=== PATIENT | female | born 1970 | race Caucasian/White ===

== ENCOUNTER 2016-08-01 17:07 | Emergency (ER) | payer OTHER ==
[2016-08-01 17:14] VITALS: BP 125/85; PULSE 68; RESP 16; TEMP 98.2; O2SAT 100
--- NOTE | 2016-08-01 17:28 | ED PDOC ---
HPI: Dental Pain/Injury Time Seen by Provider: 08/01/16 17:17 Chief Complaint (Nursing): Dental Pain Chief Complaint (Provider): Left-Sided Dental Pain History Per: Patient History/Exam Limitations: no limitations Onset/Duration Of Symptoms: Days (x3) Current Symptoms Are (Timing): Still Present Severity: Moderate Additional Complaint(s): Tori Samuel is a 46 year old female, with no pertinent past medical history , who presents to the ED on 08/01/16 for the evaluation of a moderate amount of left-sided dental pain that she has experienced x3 days. Pain is localized to both the upper and lower molars where patient reports having "two bad teeth", with radiation up towards her left ear. Patient also reports having experienced a subjective fever last night as well as a mildly sore throat, though she denies having noted any gingival swelling or discharge coming from the affected teeth. Has medicated with Tylenol without relief. Of note, patient did attempt to make an appointment with her dentist, but none were available until next week. PMD: none Past Medical History Reviewed: Historical Data, Nursing Documentation, Vital Signs Vital Signs: Last Vital Signs Temp 98.2 F 08/01/16 17:11 Pulse 68 08/01/16 17:11 Resp 16 08/01/16 17:11 BP 125/85 08/01/16 17:11 Pulse Ox 100 08/01/16 17:11 - Medical History PMH: No Chronic Diseases, GERD - Surgical History Surgical History: Appendectomy - Family History Family History: States: Unknown Family Hx - Social History Current smoker - smoking cessation education provided: Yes - Immunization History Hx Tetanus Toxoid Vaccination: No Hx Influenza Vaccination: No Hx Pneumococcal Vaccination: No - Home Medications Home Medications: Ambulatory Orders Medication Instructions Recorded Cyclobenzaprine HCl [Flexeril] 10 mg PO HS #7 tab 05/15/15 Ibuprofen 600 mg PO Q6H PRN #15 tab 05/15/15 Oxycodone HCl/Acetaminophen 1 tab PO Q6 PRN #10 tab 05/15/15 [Percocet 325 mg-5 mg] Dicyclomine [Bentyl] 20 mg PO Q12 PRN #20 tab 03/16/16 Ondansetron ODT [Zofran ODT] 4 mg PO Q6 PRN #16 odt 03/16/16 Acetaminophen with Codeine 1 each PO TID #6 tablet 08/01/16 [Tylenol with Codeine #3 Tablet] - Allergies Allergies/Adverse Reactions: Allergies Allergy/AdvReac Type Severity Reaction Status Date / Time No Known Allergies Allergy Verified 08/01/16 17:11 Review of Systems Constitutional: Positive for: Fever (subjective, last night) ENT: Positive for: Mouth Pain (left-sided upper and lower molar; no discharge/ gum swelling), Throat Pain Physical Exam - Reviewed Nursing Documentation Reviewed: Yes Vital Signs Reviewed: Yes - Physical Exam Appears: Positive for: Non-toxic, No Acute Distress ENT: Positive for: TM Is/Are (normal b/l), Other (two intact metal fillings noted to left upper and lower molars respectively where patient has localized pain; no gingival swelling/bleeding, erythema/purulent discharge or additional signs of abscess/infection noted). Negative for: Pharyngeal Erythema, Tonsillar Exudate, Tonsillar Swelling Neurologic/Psych: Positive for: Alert, Oriented - ECG O2 Sat by Pulse Oximetry: 100 (RA) Pulse Ox Interpretation: Normal Medical Decision Making Medical Decision Makin:17 Initial Impression: dental caries, vital signs stable. 17:27 Patient is medically stable and requires no emergent treatment in the ED at this time, will discharge home. Rx for Tylenol #3 given as opposed to medications within the ED as patient is planning to walk home. Patient advised that it is possible she may be developing dental caries underneath her previously placed fillings. Instructed to followup with a dentist as soon as possible for further evaluation/treatment, with a list of additional dental clinics given prior to her leaving the ED. Patient has expressed understanding of these instructions and is in agreement with discharge plan, return for acute worsening of symptoms or if develop fever/chills/purulent drainage from affected teeth prior to followup appointment. Clinical Impression: dental caries PT given T#3 for pain 6tabs .pt tooth decay not eased with OTC medication pt in 02/22 pain. Pt will see dentist tuesday. pt educated on the risks of narcotic dependency. Scribe Attestation: Documented by Mee Park, acting as a scribe for Shirin Singh PA-C. Provider Scribe Attestation: All medical record entries made by the Scribe were at my direction and personally dictated by me. I have reviewed the chart and agree that the record accurately reflects my personal performance of the history, physical exam, medical decision making, and the department course for this patient. I have also personally directed, reviewed, and agree with the discharge instructions and disposition. Disposition - Clinical Impression Clinical Impression: Dental caries - Patient ED Disposition Is Patient to be Admitted: No Counseled Patient/Family Regarding: Diagnosis, Need For Followup, Rx Given - Disposition Disposition: Routine/Home Disposition Time: 17:27 Condition: STABLE Prescriptions: Acetaminophen with Codeine [Tylenol with Codeine #3 Tablet] 1 each PO TID #6 tablet Instructions: Dental Caries (ED)
== END 2016-08-01 17:27 | disposition home or self-care (01) ==
LOC: H.ER 17:07
DX: K02.9 Dental caries, unspecified (principal); H92.02 Otalgia, left ear; J02.9 Acute pharyngitis, unspecified; R68.83 Chills (without fever)

== ENCOUNTER 2016-12-21 16:32 | Emergency (ER) | payer OTHER ==
[2016-12-21 17:05] VITALS: BP 110/76; PULSE 80; RESP 16; TEMP 98; O2SAT 100
--- NOTE | 2016-12-21 18:14 | ED PDOC ---
HPI: CCC, URI, Sore Throat Time Seen by Provider: 12/21/16 17:15 Chief Complaint (Nursing): ENT Problem Chief Complaint (Provider): Right ear pain History Per: Patient History/Exam Limitations: no limitations Onset/Duration Of Symptoms: Days (x2 days) Location Of Pain: Other (right lower jaw radiating to ear) Associated Symptoms: Fever. denies: Sore Throat Additional Complaint(s): Tori Samuel is a 46 year old female, with no past medical history, who presents to the emergency department complaining of right lower jaw pain radiating to right ear associated with fever. Patient reports pain hasn't decreased since arrival to the ED. She denies any drainage from ear, sore throat , and gum bleeding. PMD: None provided Past Medical History Reviewed: Historical Data, Nursing Documentation, Vital Signs Vital Signs: Last Vital Signs Temp 98 F 12/21/16 17:02 Pulse 80 12/21/16 17:02 Resp 16 12/21/16 17:02 BP 110/76 12/21/16 17:02 Pulse Ox 100 12/21/16 18:35 - Medical History PMH: No Chronic Diseases, GERD - Surgical History Surgical History: Appendectomy - Family History Family History: States: Unknown Family Hx - Immunization History Hx Tetanus Toxoid Vaccination: No Hx Influenza Vaccination: No Hx Pneumococcal Vaccination: No - Home Medications Home Medications: Ambulatory Orders Medication Instructions Recorded Cyclobenzaprine HCl [Flexeril] 10 mg PO HS #7 tab 05/15/15 Ibuprofen 600 mg PO Q6H PRN #15 tab 05/15/15 Oxycodone HCl/Acetaminophen 1 tab PO Q6 PRN #10 tab 05/15/15 [Percocet 325 mg-5 mg] Dicyclomine [Bentyl] 20 mg PO Q12 PRN #20 tab 03/16/16 Ondansetron ODT [Zofran ODT] 4 mg PO Q6 PRN #16 odt 03/16/16 Acetaminophen with Codeine 1 each PO TID #6 tablet 08/01/16 [Tylenol with Codeine #3 Tablet] Amoxicillin [Amoxil 500 mg Cap] 500 mg PO DAILY #7 cap 12/21/16 Ketorolac Tromethamine [Toradol] 10 mg PO TID #20 cap 12/21/16 - Allergies Allergies/Adverse Reactions: Allergies Allergy/AdvReac Type Severity Reaction Status Date / Time No Known Allergies Allergy Verified 08/01/16 17:11 Review of Systems ROS Statement: Except As Marked, All Systems Reviewed And Found Negative Constitutional: Positive for: Fever ENT: Negative for: Ear Discharge, Throat Pain, Other (gum bleeding ) Physical Exam - Reviewed Nursing Documentation Reviewed: Yes Vital Signs Reviewed: Yes - Physical Exam Appears: Positive for: Well, Non-toxic, No Acute Distress Head Exam: Positive for: ATRAUMATIC, NORMAL INSPECTION, NORMOCEPHALIC Skin: Positive for: Normal Color, Warm, Dry Eye Exam: Positive for: EOMI, Normal appearance, PERRL ENT: Positive for: Other (mild tenderness in right lower jaw radiating to the backmolar. Backmolar with filling in place but tender on touch) Cardiovascular/Chest: Positive for: Regular Rate, Rhythm Respiratory: Positive for: CNT, Normal Breath Sounds Extremity: Positive for: Normal ROM Neurologic/Psych: Positive for: Alert, Oriented - ECG O2 Sat by Pulse Oximetry: 100 (RA) Pulse Ox Interpretation: Normal Medical Decision Making Medical Decision Making: Initial Impression: Dental cavities Initial Plan: Scribe Attestation: Documented by Esteban Bolden, acting as a scribe for Shirin SILVA. Provider Scribe Attestation: All medical record entries made by the Scribe were at my direction and personally dictated by me. I have reviewed the chart and agree that the record accurately reflects my personal performance of the history, physical exam, medical decision making, and the department course for this patient. I have also personally directed, reviewed, and agree with the discharge instructions and disposition. Disposition - Clinical Impression Clinical Impression: Dental caries - Patient ED Disposition Is Patient to be Admitted: No Counseled Patient/Family Regarding: Studies Performed, Diagnosis, Need For Followup, Rx Given - Disposition Disposition: Routine/Home Disposition Time: 19:48 Condition: STABLE Prescriptions: Amoxicillin [Amoxil 500 mg Cap] 500 mg PO DAILY #7 cap Ketorolac Tromethamine [Toradol] 10 mg PO TID #20 cap Instructions: Dental Caries (ED) Forms: [employer] ([place])
== END 2016-12-21 17:46 | disposition home or self-care (01) ==
LOC: H.ER 16:32
DX: K02.9 Dental caries, unspecified (principal)

== ENCOUNTER 2017-05-19 12:37 | Inpatient (IN) | payer MEDICAID, OTHER ==
[2017-05-19] MEDS ORDERED: Alum-Mag Hydrox-Simethicone Susp (30 mL) PO ONE (13:23)
--- NOTE | 2017-05-19 14:11 | ED PDOC ---
HPI: General Adult Time Seen by Provider: 05/19/17 13:06 Chief Complaint (Nursing): Anxiety Chief Complaint (Provider): anxiety, abd pain History Per: Patient History/Exam Limitations: no limitations Onset/Duration Of Symptoms: Days (2), Gradual Current Symptoms Are (Timing): Still Present Severity: Moderate Location Of Discomfort (Image): 1 - burning Additional Complaint(s): 46yo female c/o anxiety and epigastric burning/discomfort x2 days. She states her sister is missing and that is causing her much stress, anxiety and feelings of helplessness. She believes this triggered her gastritits for which she's lost her appetite and had burning in her stomach associated with nausea but no vomiting. She denies suicidal ideation, drug or alcohol use, fever, cough, melena, diarrhea or blood in stool. Past Medical History Reviewed: Historical Data, Nursing Documentation, Vital Signs Vital Signs: Last Vital Signs Temp 98.5 F 05/19/17 13:09 Pulse 110 H 05/19/17 13:09 Resp 21 05/19/17 13:09 BP 138/91 H 05/19/17 13:09 Pulse Ox 100 05/19/17 14:13 - Medical History PMH: Anxiety, GERD - Surgical History Surgical History: Appendectomy - Family History Family History: States: Unknown Family Hx - Living Arrangements Living Arrangements: With Family - Social History Alcohol: None Drugs: Denies - Immunization History Hx Tetanus Toxoid Vaccination: No Hx Influenza Vaccination: No Hx Pneumococcal Vaccination: No - Home Medications Home Medications: Ambulatory Orders Medication Instructions Recorded Cyclobenzaprine HCl [Flexeril] 10 mg PO HS #7 tab 05/15/15 Ibuprofen 600 mg PO Q6H PRN #15 tab 05/15/15 Oxycodone HCl/Acetaminophen 1 tab PO Q6 PRN #10 tab 05/15/15 [Percocet 325 mg-5 mg] Dicyclomine [Bentyl] 20 mg PO Q12 PRN #20 tab 03/16/16 Ondansetron ODT [Zofran ODT] 4 mg PO Q6 PRN #16 odt 03/16/16 Acetaminophen with Codeine 1 each PO TID #6 tablet 08/01/16 [Tylenol with Codeine #3 Tablet] Amoxicillin [Amoxil 500 mg Cap] 500 mg PO DAILY #7 cap 12/21/16 Ketorolac Tromethamine [Toradol] 10 mg PO TID #20 cap 12/21/16 - Allergies Allergies/Adverse Reactions: Allergies Allergy/AdvReac Type Severity Reaction Status Date / Time No Known Allergies Allergy Verified 08/01/16 17:11 Review of Systems ROS Statement: Except As Marked, All Systems Reviewed And Found Negative Constitutional: Negative for: Fever, Chills Cardiovascular: Negative for: Chest Pain, Palpitations Respiratory: Negative for: Cough, Shortness of Breath Gastrointestinal: Positive for: Nausea, Abdominal Pain. Negative for: Vomiting , Diarrhea, Melena, Hematochezia Genitourinary Female: Negative for: Dysuria, Frequency Musculoskeletal: Negative for: Neck Pain, Shoulder Pain Skin: Negative for: Rash, Lesions Neurological: Negative for: Weakness, Numbness, Change in Speech, Headache Psych: Positive for: Anxiety, Depression. Negative for: Psychosis, Suicidal ideation Physical Exam - Reviewed Nursing Documentation Reviewed: Yes Vital Signs Reviewed: Yes - Physical Exam Appears: Positive for: Non-toxic (anxious), No Acute Distress Head Exam: Positive for: ATRAUMATIC, NORMAL INSPECTION, NORMOCEPHALIC Skin: Positive for: Normal Color, Warm, DRY Eye Exam: Positive for: EOMI, Normal appearance, PERRL ENT: Positive for: Normal ENT Inspection Neck: Positive for: Normal, Painless ROM Cardiovascular/Chest: Positive for: Regular Rate, Rhythm Respiratory: Positive for: CNT, Normal Breath Sounds Gastrointestinal/Abdominal: Positive for: Soft, Tenderness (epigastric). Negative for: Guarding, Rebound Back: Positive for: Normal Inspection Extremity: Positive for: Normal ROM Neurologic/Psych: Positive for: Alert, Oriented. Negative for: Motor/Sensory Deficits - ECG O2 Sat by Pulse Oximetry: 100 Medical Decision Making Medical Decision Making: workup initiated for gastritis with anxiety triggered by family stressors and sister's unknown whereabouts crisis eval ordered, xanax 1mg PO, pepcid/ maalox ordered per crisis admit to [facility] med clearance labs/EKG/CXR ordered endorse Dr Delcid pending med clr Disposition - Clinical Impression Clinical Impression: Anxiety, Epigastric pain, Depression - Patient ED Disposition Is Patient to be Admitted: Transfer of Care Counseled Patient/Family Regarding: Studies Performed, Diagnosis - Disposition Disposition: Transfer of Care Disposition Time: 15:03 Condition: FAIR Forms: [facility] ([place]) Patient Signed Over To: Malena Delcid Handoff Comments: labs/ekg/cxr for psychiatric admission
--- NOTE | 2017-05-19 15:02 | RAD ---
HISTORY: ro infiltrate COMPARISON: No prior. FINDINGS: LUNGS: The lungs are well inflated and clear. PLEURA: No significant pleural effusion identified, no pneumothorax apparent. CARDIOVASCULAR: Normal. OSSEOUS STRUCTURES: There are old fracture deformities in the right posterior 7th and 8th ribs. VISUALIZED UPPER ABDOMEN: Normal. OTHER FINDINGS: None. IMPRESSION: No active pulmonary disease.
--- NOTE | 2017-05-19 15:09 | ED PDOC ---
- Laboratory Results Result Diagrams: 05/19/17 15:50 05/19/17 15:50 - ECG O2 Sat by Pulse Oximetry: 100 Medical Decision Making Medical Decision Making: Time: 1500 --Patient endorsed from Dr. Robles to me. --Pending blood, chest, and EKG work up for medical clearance and for admission to psychiatric unit. 17:09 Patient will be admitted to psychiatry for depression and anxiety. Scribe~Attestation: Documented by Esperanza Valles and Flor Montez, acting as scribes for Malena Delcid MD. Provider Scribe~Attestation: All medical record entries made by the Scribe were at my direction and personally dictated by me. I have reviewed the chart and agree that the record accurately reflects my personal performance of the history, physical exam, medical decision making, and the department course for this patient. I have also personally directed, reviewed, and agree with the discharge instructions and disposition. Disposition Doctor Will See Patient In The: Hospital Counseled Patient/Family Regarding: Diagnosis - Clinical Impression Clinical Impression: Anxiety, Epigastric pain, Depression - POA Present On Arrival: None - Disposition Disposition: Admitted as In-Patient Disposition Time: 16:50 Condition: FAIR
[2017-05-19 15:55] LABS: BASO % 0.3 % (0.0-2.0); EOS % 0.1 % (0.0-4.0); HEMOGLOBIN 11.7 g/dL (12.0-16.0); LYMPH % 28.1 % (20.0-40.0); MEAN CELL VOLUME 93.9 fl (81.0-99.0); MEAN PLATELET VOLUME 7.8 fl (7.2-11.7); MONO # 0.3 K/uL (0.0-0.8); MONO % 3.9 % (0.0-10.0); NEUT # 4.9 K/uL (1.8-7.0); NEUT % 67.6 % (50.0-75.0); RBC 3.76 Mil/uL (3.80-5.20); RED CELL DISTRIBUTION WIDTH 13.1 % (11.5-14.5); WHITE BLOOD COUNT 7.3 K/uL (4.8-10.8)
[2017-05-19 16:13] LABS: BARBITURATES, UR NEGATIVE (NEGATIVE); BENZODIAZEPINES, UR NEGATIVE (NEGATIVE); OPIATES, UR NEGATIVE (NEGATIVE); PHENCYCLIDINE, UR NEGATIVE (NEGATIVE)
[2017-05-19 16:17] LABS: ACETAMINOPHEN < 10.0 ug/ml (10.0-30.0); SALICYLATE < 1.0 mg/dl
[2017-05-19 16:18] LABS: ALB/GLOB RATIO 1.4 (1.0-2.1); ALBUMIN 4.6 g/dL (3.5-5.0); ALT/SGPT 45 U/L (9-52); AST/SGOT 26 U/L (14-36); BLOOD UREA NITROGEN 14 mg/dl (7-17); CALCIUM 9.3 mg/dL (8.4-10.2); GFR AFRICAN-AMERICAN > 60; GFR NON-AFRICAN AMERICAN > 60
[2017-05-19] MEDS ORDERED: DiphenhydrAMINE 50 mg/ml Inj IM PRN (19:56)
[2017-05-19] MEDS ORDERED: Magnesium Hydroxide Susp 30 ml UD PO PRN (19:56)
--- NOTE | 2017-05-19 20:04 | PCM.BM ---
<SushilJuana Lorenzo - Last Filed: 05/19/17 20:02> Treatment Plan Problems - Problems identified on initial assessmt Anxiety Date Initiated: 05/19/17 Time Initiated: 20:02 Assessment reference: NA Status: Active Hopelessness/Helplessness Date Initiated: 05/19/17 Time Initiated: 20:03 Assessment reference: NA Status: Active Treatment assets and liabiliti Patient Assests: cooperative, ADL independent, negotiates basic needs Patient Liabilities: substance abuse - Milieu Protocol Maintain good personal hygiene: daily Encourage regular showers Conduct patient checks and document Observation sheet: Q15 minutes Maintain personal safety: every shift Educate patient to report safety concerns to staff, every shift Monitor environment for contraband/sharps Medication safety: Monitor for expected outcome, potential side effects: every shift, Assess barriers to learning: every shift, Assess readiness for medication education: every shift <Carlo Gaona - Last Filed: 05/22/17 16:41> Family Contact Family involvement: Family/SO is involved Family contact: Patient declines to allow family contact at present Family contact name: Pt denied. - Goals for Treatment Patient goals for treatment: Pt would like to get connected to outpatient services so she can begin therapy to begin to work on her anxiety and how her thoughts and behavior effect her. Discharge/Continuing Care - Education Needs Education Needs: Patient Medication, Patient Diagnosis/Disease Process, Patient Coping Skills, Patient Community resources, Patient Health Practices/Safety - Discharge Discharge Criteria: Tolerates medication w/o severe side effects, Free of agitation, Normal sleep pattern Discharge to:: Home, With Family - Treatment Team Participation Discussed with Family/SO: No <Teresa Echeverria - Last Filed: 05/23/17 12:07> Discharge/Continuing Care - Treatment Team Participation Patient/Family/SO Statement: 05/23/17 12:07 Patient reports significant improvement in symptoms of depression and anxiety since admission. Patient brighter than upon admission. Patient visible on 3NP and observed socializing appropriately with peers. Patient is discharged focused and expressed motivation for tx. Patient agreeable to outpatient mental health services with [facility]. Patient anticipated discharge on 05/24. Patient denies any concerns. Was Patient/Family/SO present at Treatment Team Meeting: Yes <Art Martin - Last Filed: 05/24/17 09:34> - Diagnosis (1) Anxiety Status: Acute Interventions: 05/24/17 09:01 psychotherapy pharmacotherapy
[2017-05-19] MEDS: Alum-Mag Hydrox-Simethicone Susp (30 mL) PO PRN (21:23)
[2017-05-20 08:41] LABS: T4 10.7 ug/dl (5.5-11.0)
[2017-05-20] MEDS ORDERED: Influenza Vaccine 18yr & older 0.5 ML/45 MCG SYR IM ONE (09:00)
[2017-05-20] MEDS ORDERED: Pneumococcal 23-Valent Vaccine IM ONE (09:30)
--- NOTE | 2017-05-20 10:50 | CARD ---
APPROVED REPORT EKG Measurement Heart [id number] <Conclusion> Normal sinus rhythm Normal ECG
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
--- NOTE | 2017-05-20 16:30 | PCM.PSYCH ---
Initial Psychiatric Evaluation - Initial Psychiatric Evaluation Legal Status: Capacity Chief Complaint (in patient's own words): I am anxious and very depressed Patient's Reaction to Hospitalization: pt requested help History of Present Illness and Precipitating Events: pt with previous psychiatric diagnosis of opiate dependence in full remission, depression and anxiety, recently lost her father for pancreatic cancer, has been since thaen increasingly depressed, anxious edgy keyed up poor, sleep , poor appetite with excessive weight loss pt last week was unable to get in touch with her sister became more worried, started experiencing suicidal ideations without a plan, came to er seeking help denied manic or psychotic symptoms, reported daily use of cannabis, denied homicidal ideations Current Medications: Active Medications Generic Name Dose Route Start Last Admin Trade Name Freq PRN Reason Stop Dose Admin Acetaminophen 650 mg 05/19/17 19:56 Tylenol 325mg Tab PO Q4 PRN pain level 4-7 Al Hydrox/Mg Hydrox/Simethicone 30 ml 05/19/17 19:56 05/19/17 21:23 Maalox Plus 30 Ml PO 30 ml Q4 PRN Administration Dyspepsia Buspirone HCl 5 mg 05/20/17 11:30 05/20/17 13:12 Buspar PO 5 mg BID TSERING Administration Diphenhydramine HCl 50 mg 05/19/17 19:56 Benadryl IM Q6 PRN Extrapyramidal S/S Unable PO Diphenhydramine HCl 50 mg 05/19/17 19:56 Benadryl PO Q6 PRN Extrapyramidal Symptoms Haloperidol 5 mg 05/19/17 19:56 Haldol PO Q4 PRN Agitation Haloperidol Lactate 5 mg 05/19/17 19:56 Haldol IM Q4 PRN Agitation, Unable to Take PO Lorazepam 1 mg 05/19/17 19:56 Ativan IM Q6 PRN Anxiety/Agitation,Unable PO Lorazepam 1 mg 05/19/17 19:56 Ativan PO Q6 PRN Anxiety/Agitation Magnesium Hydroxide 30 ml 05/19/17 19:56 Milk Of Magnesia PO HS PRN Constipation Mirtazapine 7.5 mg 05/20/17 22:00 Remeron PO HS [facility] Pantoprazole Sodium 40 mg 05/20/17 11:45 Protonix Ec Tab PO DAILY [facility] Past Psychiatric History - Past Psychiatric History Explanation of prior treatment: history of opiate dependence. in full remission for seven yearsno hx of previous hospitalizations, hx of rehab for opiate dependence, court mandated History of Abuse: denied History of ETOH/Drug Use: cannabis use daily History of Family Illness: older sister/ depression Pertinent Medical Hx (Current Medical&Sleep Prob, Allergies): Allergies Allergy/AdvReac Type Severity Reaction Status Date / Time No Known Allergies Allergy Verified 08/01/16 17:11 Acetaminophen/Diphenhydramine [Tylenol Pm Ex-Strength Caplet] 1 each PO HS 05/19 Mental Status Examination - Personal Presentation Personal Presentation: Looks stated age - Affect Affect: Constricted, Depressed - Motor Activity Motor Activity: Psychomotor Retardation - Reliability in Providing Information Reliability in Providing Information: Fair - Speech Speech: Relevant - Mood Mood: Depressed, Anxious - Formal Thought Process Formal Thought Process: Circumstantial - Hallucinations/Delusions Additional comments: pt denied perceptual disturbances , non elicited - Obsessions/Compulsions Obsessions: No Compulsions: No - Cognitive Functions Orientation: Person, Place Sensorium: Alert Attention/Concentration: Attentive Abstract Thinking: [place] Judgement: Imparied, as evidence by: Poor judgement - Risk Risk: Diminished functioning - Strength & Assets Inventory Strength & Assets Inventory: Employment history - Limitations Additional comments: limited insight DSM 5 DX - DSM 5 DSM 5 Diagnosis: major depression generalized anxiety disorder cannabis induced anxiety disorder - Recommended/Plan of Treatment Treatment Recommendations and Plan of Treatment: start remeron 7.5mg qhs start buspar 5mg bid CBT, Motivational and group therapy Projected ELOS: 7 days Discharge Plan and Discharge Criteria: pt no longer depressed
[2017-05-20] MEDS: Pantoprazole 40 mg EC Tab PO SCH (17:31)
[2017-05-21] MEDS: Pantoprazole 40 mg EC Tab PO SCH (08:56)
[2017-05-21] MEDS: Alum-Mag Hydrox-Simethicone Susp (30 mL) PO PRN (17:53)
--- NOTE | 2017-05-21 18:33 | PCM.PYCHPN ---
Psychiatric Progress Note - Psychiatric Progress Note Patient seen today, length of contact: chart reviewed case discussed with team Patient Chief Complaint: was feeling depressed somewhat improving Problems Identified/Issues Discussed: alteration in coping alteration in mood Medical Problems: per chart Diagnostic Results: per psychiatry per medicine per nursing per social work DSM 5 Symptoms Update: mood symptoms somewhat improving Medication Change: No Medical Record Reviewed: Yes Consults ordered or reviewed: pt being followed by hospitalist Mental Status Examination - Cognitive Function Orientation: Person, Place, Situation, Time Attention: WNL Concentration: WNL Association: WNL Fund of Knowledge: WN Decription of patient's judgement and insights: impaired - Mood Mood: Depressed, Anxious - Affect Affect: Constricted, Depressed - Formal Thought Process Formal Thought Process: Circumstantial - Homicidal Ideation Homicidal Ideation: No Goal/Treatment Plan - Goal/Treatment Plan Progress Toward Problem(s) and Goals/Treatment Plan: inpt milieu adjust rx per status discharge planning in progress Estimated Date of D/C: 05/24/17 - Smoking Cessation Smoking Cessation Initiated: No Reason for not providing: pt defers
[2017-05-22] MEDS: Pantoprazole 40 mg EC Tab PO SCH (08:56)
--- NOTE | 2017-05-22 20:38 | PCM.PYCHPN ---
Psychiatric Progress Note - Psychiatric Progress Note Patient seen today, length of contact: chart reviewed case discussed with team Patient Chief Complaint: was feeling depressed improving, reports last night felt as though legs were shaking asks if any new rx was given chart was reviewed and no meds were changed received mirtazepine 7.5mg po hs (had been receiving). was seen about unit interacting with peers laughing at times. chart reveals that pt received prn benadryl which pt. reports that benadryl helped with the shaking of legs- questions may have been several cups of tea Problems Identified/Issues Discussed: alteration in coping alteration in mood Medical Problems: per chart Diagnostic Results: per psychiatry per medicine per nursing per social work DSM 5 Symptoms Update: alteration in mood and sleep-improving Medication Change: No Medical Record Reviewed: Yes Consults ordered or reviewed: pt being followed by hospitalist Mental Status Examination - Cognitive Function Orientation: Person, Place, Situation, Time Attention: WNL Concentration: WNL Association: WNL Fund of Knowledge: WNL Decription of patient's judgement and insights: impaired - Mood Mood: Depressed, Anxious - Affect Affect: Constricted, Depressed - Formal Thought Process Formal Thought Process: Circumstantial - Homicidal Ideation Homicidal Ideation: No Goal/Treatment Plan - Goal/Treatment Plan Progress Toward Problem(s) and Goals/Treatment Plan: inpt milieu vital signs and clinical observation per protocol and per status review with pt may notify staff if feels same can discuss with team in am adjust rx per status discharge planning in progress Estimated Date of D/C: 05/24/17 - Smoking Cessation Smoking Cessation Initiated: No Reason for not providing: defers
[2017-05-23 05:24] VITALS: O2SAT 100
[2017-05-23] MEDS: Pantoprazole 40 mg EC Tab PO SCH ×2 (08:58→09:43)
[2017-05-23] MEDS: Alum-Mag Hydrox-Simethicone Susp (30 mL) PO PRN (13:11)
--- NOTE | 2017-05-23 16:50 | PCM.PYCHPN ---
Psychiatric Progress Note - Psychiatric Progress Note Patient seen today, length of contact: chart reviewed case discussed with team Patient Chief Complaint: I am feeling better Problems Identified/Issues Discussed: pt reported better mood , less anxious, improvedsleep and appetite denied any current suicidal or homicidal ideations denied perceptual disturbances denied side effects of medications Medical Problems: history of opiate dependence. in full remission for seven yearsno hx of previous hospitalizations, hx of rehab for opiate dependence, court mandated DSM 5 Symptoms Update: generalized anxiety disorder cannabis use disrder Medication Change: Yes (increase buspar) Medical Record Reviewed: Yes Mental Status Examination - Cognitive Function Orientation: Person, Place, Situation, Time Attention: WNL Concentration: WNL Association: WNL Fund of Knowledge: WNL - Mood Mood: Neutral - Affect Affect: Constricted, Depressed - Speech Speech: Appropriate - Formal Thought Process Formal Thought Process: Circumstantial Psychotic Thoughts and Behaviors: pt denied psychotic symptoms, non elicited - Suicidal Ideation Suicidal Ideation: No - Homicidal Ideation Homicidal Ideation: No Goal/Treatment Plan - Goal/Treatment Plan Need for Continued Stay: Severe depression anxiety, Discharge may exacerbated symptoms Progress Toward Problem(s) and Goals/Treatment Plan: continue remeron 7.5mg qhs increase buspar 10mg bid CBT, Motivational and group therapy Estimated Date of D/C: 05/24/17
[2017-05-24] MEDS: Pantoprazole 40 mg EC Tab PO SCH (08:41)
[2017-05-24 08:50] VITALS: BP 124/72; PULSE 76; RESP 18; TEMP 97.9
--- NOTE | 2017-05-24 12:36 | PCM.PYCHDC ---
Mental Status Examination - Mental Status Examination Orientation: Person, Place, Situation Memory: Intact Mood: Neutral Affect: Broad Speech: Appropriate Attention: WNL Concentration: WNL Association: WNL Fund of Knowledge: WNL Formal Thought Process: No Impairment Description of patient's judgement and insight: fair insight and judgment Psychotic Thoughts and Behaviors: pt denied psychotic symptoms, non elicited Suicidal Ideation: No Current Homicidal Ideation?: No Discharge Summary - Discharge Note Reason for Hospitalization: pt with previous psychiatric diagnosis of opiate dependence in full remission, depression and anxiety, recently lost her father for pancreatic cancer, has been since thaen increasingly depressed, anxious edgy keyed up poor, sleep , poor appetite with excessive weight loss pt last week was unable to get in touch with her sister became more worried, started experiencing suicidal ideations without a plan, came to er seeking help denied manic or psychotic symptoms, reported daily use of cannabis, denied homicidal ideations Consultations:: List each consultation separately and include: 1. Reason for request. 2. Findings. 3. Follow-up Summary of Hospital Course include:: 1. Description of specific treatment plan utilized for patients during their course of treatmen. 2. Summarize the time- course for resolution of acute symptoms and/or regressed behaviors. 3. Describe issues identified and worked on during hospitalization. 4. Describe medication utilized. 5. Describe medical problems identified and treated. 6. Reassessment of suicide risk Summary of Hospital Course: pt on admission was started on remeron for depression and poor appetite also started on buspar for anxiety Motivational group and supportive therapy provided pt was compliant with treatment, no reported side effects of medications on discharge mental status was stable, pt denied any current suicidal ideations denied perceptual disturbances follow up arranged with outpatient clinic - Diagnosis (1) Anxiety Current Visit: Yes Status: Acute - Final Diagnosis (DSM 5) Condition upon Discharge: FAIR DSM 5: generalized anxiety disorder cannabis induced anxiety disorder cannabis use disorder Disposition: HOME/ ROUTINE Follow-up Treatment Plan: continue remeron 7.5mg qhs increase buspar 10mg bid CBT, Motivational and group therapy Prescriptions/Medication Reconciliation: busPIRone [Buspar] 10 mg PO BID 30 Days #60 tab Mirtazapine [Remeron] 7.5 mg PO HS 30 Days #30 tab Pantoprazole [Protonix EC Tab] 40 mg PO DAILY 15 Days #15 ect - Antipsychotic Medications Pt discharged on 2 or more routine antipsychotic medications: No
== END 2017-05-24 11:00 | disposition home or self-care (01) | DRG 425 ==
LOC: H.ER 12:37 → H.ERHOLD 17:07 → H.PSYCH 19:25
PROVIDERS: ADMIT Psychiatry & Neurology Psychiatry; ATTEND Psychiatry & Neurology Psychiatry
PROC: HZ52ZZZ Individual Psychotherapy for Substance Abuse Treatment, Cognitive-Behavioral (ICD-10-PCS; principal; 2017-05-19)
PROC: GZHZZZZ Group Psychotherapy (ICD-10-PCS; 2017-05-19)
PROC: HZ57ZZZ Individual Psychotherapy for Substance Abuse Treatment, Motivational Enhancement (ICD-10-PCS; 2017-05-19)
DX: F41.1 Generalized anxiety disorder (principal); F11.21 Opioid dependence, in remission; F12.90 Cannabis use, unspecified, uncomplicated; F12.980 Cannabis use, unspecified with anxiety disorder; F32.9 Major depressive disorder, single episode, unspecified; K21.9 Gastro-esophageal reflux disease without esophagitis; R10.13 Epigastric pain

== ENCOUNTER 2018-06-22 14:39 | Emergency (ER) | payer SELFPAY ==
[2018-06-22 15:18] VITALS: TEMP 98.2
--- NOTE | 2018-06-22 16:37 | ED PDOC ---
HPI: Influenza Time Seen by Provider: 06/22/18 15:26 Chief Complaint: ENT Problem Chief Complaint (Provider): Flu-like Symptoms History Per: Patient Exam Limitations: no limitations Onset/Duration Of Symptoms: Days (x1) Additional complaint(s):: 48 year old female with pmhx of kidney stones presents to the ED for evaluation of nasal congestion, watery d/c from left eye, cough productive of whitish- yellow sputum, mild sore throat with ability to tolerate fluids, body aches, and right flank pain associated with urinary frequency and dysuria for the past day. Patient also notes that she is menopausal and has hot flashes, so she is unsure if she is actually feverish. 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 Pt did not receive flu vaccinations this season PMD: none provided Past Medical History Reviewed: Historical Data, Nursing Documentation, Vital Signs Vital Signs: Last Vital Signs Temp 98.2 F 06/22/18 15:15 Pulse 82 06/22/18 15:15 Resp 18 06/22/18 15:15 BP 111/66 06/22/18 15:15 Pulse Ox 97 06/22/18 15:15 - Medical History PMH: Anxiety, Depression, GERD Denies: Diabetes, Hepatitis, HIV, HTN, Kidney Stones, Chronic Kidney Disease, Seizures, Sexually Transmitted Disease - Surgical History Surgical History: Appendectomy Other surgeries: kidney stones - Family History Family History: States: Unknown Family Hx - Social History Current smoker - smoking cessation education provided: Yes (7 cigs daily for past 3 years) Alcohol: None Drugs: Denies - Immunization History Hx Tetanus Toxoid Vaccination: No Hx Influenza Vaccination: No Hx Pneumococcal Vaccination: No - Home Medications Home Medications: Ambulatory Orders Medication Instructions Recorded Acetaminophen/Diphenhydramine 1 each PO HS 05/19/17 [Tylenol Pm Ex-Strength Caplet] Mirtazapine [Remeron] 7.5 mg PO HS 30 Days #30 tab 05/24/17 Pantoprazole [Protonix EC Tab] 40 mg PO DAILY 15 Days #15 ect 05/24/17 busPIRone [Buspar] 10 mg PO BID 30 Days #60 tab 05/24/17 Ibuprofen [Motrin Tab] 600 mg PO Q6 PRN 7 Days tab 06/22/18 Oseltamivir Phosphate [Tamiflu] 75 mg PO BID 5 Days capsule 06/22/18 - Allergies Allergies/Adverse Reactions: Allergies Allergy/AdvReac Type Severity Reaction Status Date / Time No Known Allergies Allergy Verified 08/01/16 17:11 Review of Systems ROS Statement: Except As Marked, All Systems Reviewed And Found Negative Constitutional: Positive for: Fever (possibly), Other (body aches) Eyes: Positive for: Other (watery discharge from left eye) ENT: Positive for: Nose Congestion, Throat Pain (mild). Negative for: Ear Pain Respiratory: Positive for: Cough, Sputum (whitish-yellow) Gastrointestinal: Negative for: Nausea, Vomiting, Diarrhea Genitourinary Female: Positive for: Dysuria, Frequency Musculoskeletal: Positive for: Other (right flank pain) Physical Exam - Reviewed Nursing Documentation Reviewed: Yes Vital Signs Reviewed: Yes - Physical Exam Appears: Positive for: Uncomfortable Head Exam: Positive for: ATRAUMATIC, NORMAL INSPECTION, NORMOCEPHALIC Eye Exam: Positive for: Normal appearance, EOMI, PERRL ENT: Positive for: Pharyngeal Erythema (mild). Negative for: Sinus Pain/Drainage (to palpation), Tonsillar Exudate, Tonsillar Swelling Cardiovascular/Chest: Positive for: Regular Rate, Rhythm Respiratory: Positive for: Normal Breath Sounds. Negative for: Rales, Rhonchi, Wheezing, Respiratory Distress Gastrointestinal/Abdominal: Positive for: Normal Exam, Soft. Negative for: Tenderness Back: Positive for: Normal Inspection. Negative for: L CVA Tenderness, R CVA Tenderness, Vertebral Tenderness Lymphatic: Positive for: Other (palpable lymph node on right neck) Neurologic/Psych: Positive for: Alert, Oriented (x3) Medical Decision Making Medical Decision Making: Time: 155 Initial Impression: flu-like symptoms Initial Plan: --BMP --U-preg --CBC with differential --Toradol 15mg IVP --Urine culture --Influenza A B swab --Rapid strep --Urinalysis --Reevaluation 1729 Upon reevaluation, pt notes her flank pain has improved. Rapid strep and flu results are negative, and labs only significant for slightly elevated BUN at 22. UA reviewed and within normal limits. All results discussed with patient and questions answered. Pt will be started on 500cc NS bolus and given first dose of Tamiflu 75mg PO here, which she will receive a script for upon d/c. 1844 Upon reevaluation, pt reports she is feeling better. Return parameters discussed and patient is stable for d/c home. Scribe Attestation: Documented by Pretty Paris, acting as a scribe for Alice Rodriguez PA-C. Provider Scribe Attestation: All medical record entries made by the Scribe were at my direction and personally dictated by me. I have reviewed the chart and agree that the record accurately reflects my personal performance of the history, physical exam, medical decision making, and the department course for this patient. I have also personally directed, reviewed, and agree with the discharge instructions and disposition. - Laboratory Results Result Diagrams: 06/22/18 16:03 06/22/18 16:03 - ECG O2 Sat by Pulse Oximetry: 97 (RA) Pulse Ox Interpretation: Normal Disposition - Clinical Impression Clinical Impression: Influenza - Patient ED Disposition Is Patient to be Admitted: No Counseled Patient/Family Regarding: Studies Performed, Diagnosis, Rx Given - Disposition Referrals: [facility] [Outside] Disposition Time: 18:53 Condition: STABLE Additional Instructions: Return to ER if you develop trouble breathing. Use over the counter cough medication for cough. Take Tamiflu for 5 days to reduce the severity of your symptoms. Take Tylenol and Ibuprofen for the body aches/fevers. Prescriptions: Ibuprofen [Motrin Tab] 600 mg PO Q6 PRN 7 Days tab PRN Reason: Pain, Moderate (4-7) Oseltamivir Phosphate [Tamiflu] 75 mg PO BID 5 Days capsule Instructions: Flu, Adult (DC) Forms: [employer] ([place]), [facility] ED School/Work Excuse Print Language: LAO
[2018-06-22 16:52] LABS: BASO % 0.7 % (0.0-2.0); EOS % 0.6 % (0.0-4.0); HEMOGLOBIN 11.2 g/dL (12.0-16.0); LYMPH # 1.1 K/uL (1.0-4.3); MEAN CELL VOLUME 93.9 fl (81.0-99.0); MEAN CORPUSCULAR HEMOGLOBIN 29.3 pg (27.0-31.0); MEAN CORPUSCULAR HGB CONC 31.2 g/dL (33.0-37.0); MONO # 0.5 K/uL (0.0-0.8); MONO % 8.4 % (0.0-10.0); NEUT # 3.8 K/uL (1.8-7.0); NEUT % 69.3 % (50.0-75.0); NRBC % 0.2 % (0.0-0.0); RBC 3.82 Mil/uL (3.80-5.20); RED CELL DISTRIBUTION WIDTH 12.8 % (11.5-14.5); WHITE BLOOD COUNT 5.5 K/uL (4.8-10.8)
[2018-06-22 16:57] LABS: SQUAMOUS EPITHIAL 2 /hpf (0-5); URINE BACTERIA RARE (<OCC); URINE BILIRUBIN NEGATIVE (NEGATIVE); URINE BLOOD NEGATIVE (NEGATIVE); URINE CLARITY SLIGHTY-CLOUDY (Clear); URINE COLOR YELLOW (YELLOW); URINE GLUCOSE (UA) NEG (NEGATIVE); URINE LEUKOCYTE ESTERASE NEG Leu/uL (Negative); URINE PROTEIN 30 mg/dL (NEGATIVE); URINE UROBILINOGEN 0.2-1.0 mg/dL (0.2-1.0)
[2018-06-22 17:02] LABS: BLOOD UREA NITROGEN 22 mg/dl (7-17); CALCIUM 9.1 mg/dL (8.4-10.2); GFR NON-AFRICAN AMERICAN > 60
[2018-06-22] MEDS ORDERED: Sodium Chloride 0.9% 500 ML IV ONE (17:30)
[2018-06-22 19:15] VITALS: BP 148/77; PULSE 88; RESP 16; O2SAT 99
== END 2018-06-22 19:30 | disposition home or self-care (01) ==
LOC: H.ER 14:39
DX: J11.1 Influenza due to unidentified influenza virus with other respiratory manifestations (principal); F17.200 Nicotine dependence, unspecified, uncomplicated; Z86.59 Personal history of other mental and behavioral disorders; Z87.442 Personal history of urinary calculi
CPT/HCPCS: 80048; 81003; 85025; 87070; 87086; 87430; 87804; 96374; 99282; J1885; J7040

== ENCOUNTER 2018-08-05 17:30 | Emergency (ER) | payer SELFPAY ==
[2018-08-05 17:59] VITALS: BP 126/88; PULSE 86; RESP 16; TEMP 98.1; O2SAT 100
--- NOTE | 2018-08-05 18:13 | ED PDOC ---
HPI: General Adult Time Seen by Provider: 08/05/18 18:05 Chief Complaint (Nursing): Flu-like Symptoms Chief Complaint (Provider): cough, congestion and sore throat History Per: Patient History/Exam Limitations: no limitations Onset/Duration Of Symptoms: Days (x1 week) Current Symptoms Are (Timing): Still Present Additional Complaint(s): Tori Samuel is a 48 year old female, with no significant past medical history, who presents to the emergency department complaining of cough, nasal congestion and sore throat onset for x1 week. Patient now notes facial pain and headache. She took Tylenol today without any relief. She denies any fever, chills, nausea, vomit or other medical complaints. PMD: [facility] Past Medical History Reviewed: Historical Data, Nursing Documentation, Vital Signs Vital Signs: Last Vital Signs Temp 98.1 F 08/05/18 17:55 Pulse 86 08/05/18 17:55 Resp 16 08/05/18 17:55 BP 126/88 08/05/18 17:55 Pulse Ox 100 08/05/18 17:55 - Medical History PMH: Anxiety, Depression, GERD Denies: Diabetes, Hepatitis, HIV, HTN, Kidney Stones, Chronic Kidney Disease, Seizures, Sexually Transmitted Disease - Surgical History Surgical History: Appendectomy - Family History Family History: States: Unknown Family Hx - Immunization History Hx Tetanus Toxoid Vaccination: No Hx Influenza Vaccination: No Hx Pneumococcal Vaccination: No - Home Medications Home Medications: Ambulatory Orders Medication Instructions Recorded Acetaminophen/Diphenhydramine 1 each PO HS 05/19/17 [Tylenol Pm Ex-Strength Caplet] Mirtazapine [Remeron] 7.5 mg PO HS 30 Days #30 tab 05/24/17 Pantoprazole [Protonix EC Tab] 40 mg PO DAILY 15 Days #15 ect 05/24/17 busPIRone [Buspar] 10 mg PO BID 30 Days #60 tab 05/24/17 Ibuprofen [Motrin Tab] 600 mg PO Q6 PRN 7 Days tab 06/22/18 Oseltamivir Phosphate [Tamiflu] 75 mg PO BID 5 Days capsule 06/22/18 Acetaminophen [Acetaminophen Extra 2 tab PO Q6 PRN #24 tablet 08/05/18 Strength] Amoxicillin/Clavulanate [Augmentin 1 tab PO BID #20 tab 03/23/19 875 MG-125 MG] Ibuprofen [Motrin] 600 mg PO Q8 PRN #21 tab 08/05/18 Oseltamivir Phosphate [Tamiflu] 75 mg PO BID #10 capsule 08/05/18 Promethazine/Codeine 5 ml PO Q12 PRN #100 ml 08/05/18 [Codeine/Promethazine 10 MG/5 Ml-6.25 MG/5 Ml] Pseudoephedrine [Sudafed Tab] 60 mg PO Q6 PRN #24 tab 08/05/18 - Allergies Allergies/Adverse Reactions: Allergies Allergy/AdvReac Type Severity Reaction Status Date / Time No Known Allergies Allergy Verified 08/05/18 17:55 Review of Systems ROS Statement: Except As Marked, All Systems Reviewed And Found Negative Constitutional: Negative for: Fever, Chills ENT: Positive for: Nose Discharge, Throat Pain Respiratory: Positive for: Cough Gastrointestinal: Negative for: Nausea, Vomiting Physical Exam - Reviewed Nursing Documentation Reviewed: Yes Vital Signs Reviewed: Yes - Physical Exam Appears: Positive for: No Acute Distress Head Exam: Positive for: ATRAUMATIC, NORMAL INSPECTION, NORMOCEPHALIC Skin: Positive for: Normal Color, Warm, Dry Eye Exam: Positive for: Normal appearance, EOMI, PERRL ENT: Positive for: Other (Decrease cone of light in bilateral ears. No erythema). Negative for: Pharyngeal Erythema Neck: Positive for: Normal, Painless ROM Cardiovascular/Chest: Positive for: Regular Rate, Rhythm. Negative for: Murmur Respiratory: Positive for: Normal Breath Sounds. Negative for: Respiratory Distress Gastrointestinal/Abdominal: Positive for: Normal Exam, Soft. Negative for: Tenderness Back: Positive for: Normal Inspection. Negative for: L CVA Tenderness, R CVA Tenderness Extremity: Positive for: Normal ROM (upper and lower extremities). Negative for: Tenderness, Deformity, Swelling Neurological/Psych: Positive for: Awake, Alert, Normal Tone - ECG O2 Sat by Pulse Oximetry: 100 (RA) Pulse Ox Interpretation: Normal - Progress ED Course And Treament: INfluenza B Rapid strep negative Medical Decision Making Medical Decision Making: Time: 18:05 Initial Impression: URI, Flu-like symptoms Initial Plan: --Sudafed tab 60mg PO --Toradol 30mg IM --Rapid Flu A/B --Rapid strep group A Antigen --Reevaluation Scribe Attestation: Documented by Esteban Bolden, acting as a scribe for Argelia Hernandez PA-C. Provider Scribe Attestation: All medical record entries made by the Scribe were at my direction and personally dictated by me. I have reviewed the chart and agree that the record accurately reflects my personal performance of the history, physical exam, medical decision making, and the department course for this patient. I have also personally directed, reviewed, and agree with the discharge instructions and disposition. Disposition - Clinical Impression Clinical Impression: Influenza B - Patient ED Disposition Is Patient to be Admitted: No - Disposition Disposition: Routine/Home Disposition Time: 19:24 Condition: FAIR Prescriptions: Acetaminophen [Acetaminophen Extra Strength] 2 tab PO Q6 PRN #24 tablet PRN Reason: Pain, Moderate (4-7) Amoxicillin/Clavulanate [Augmentin 875 MG-125 MG] 1 tab PO BID #20 tab Ibuprofen [Motrin] 600 mg PO Q8 PRN #21 tab PRN Reason: Pain, Moderate (4-7) Oseltamivir Phosphate [Tamiflu] 75 mg PO BID #10 capsule Promethazine/Codeine [Codeine/Promethazine 10 MG/5 Ml-6.25 MG/5 Ml] 5 ml PO Q12 PRN #100 ml PRN Reason: Cough Pseudoephedrine [Sudafed Tab] 60 mg PO Q6 PRN #24 tab PRN Reason: Nasal Congestion Instructions: Flu, Adult (DC) Forms: [facility] ED School/Work Excuse
== END 2018-08-05 19:34 | disposition home or self-care (01) ==
LOC: H.ER 17:30
DX: J11.1 Influenza due to unidentified influenza virus with other respiratory manifestations (principal); Z86.59 Personal history of other mental and behavioral disorders; Z23 Encounter for immunization; K21.9 Gastro-esophageal reflux disease without esophagitis
CPT/HCPCS: 81025; 87070; 87430; 87804; 96372; 99283; J1885